=== PATIENT | female | born 1995 | race Caucasian/White ===

== ENCOUNTER 2017-06-01 22:15 | Emergency (ER) | END 2017-06-02 04:28 | disposition home or self-care (01) ==

== ENCOUNTER 2017-07-20 16:05 | Emergency (ER) | END 2017-07-20 20:48 | disposition home or self-care (01) ==

== ENCOUNTER 2018-08-25 15:27 | Observation (INO) | payer OTHER ==
[~2018-08-25] VITALS: Ht 170.2 cm; Wt 86.5 kg
[~2018-08-25 15:27] MED LIST: ACET500C5 PO; CLIN300C10 PO; ELEC100080 PO; METO10TA92 PO; PREN1TAB49 PO; PRO20 PO
[2018-08-25] MEDS ORDERED: SOD CHLORIDE 0.9% 1,000 ML IV STA (16:13)
--- NOTE | 2018-08-25 17:10 | ERD ---
ER Documentation Chief Complaint Chief Complaint [facility], [facility], vag bleeding uncontrolled HPI 23-year-old female Ab1 brought in by ambulance from [facility] after she had a suction at 12 weeks gestational age. She had uncontrolled vaginal bleeding so the device was placed to tamponade the bleeding and she was sent to the ER. It seems that the physician there called Dr. Austin, 1 of our terminal carman here, who has been expecting the patient. Patient is not complaining of any abdominal pain, dizziness, headache, nausea. She states she does has mild discomfort from the Singh and the other tube in her vagina. Denies any history of bleeding disorders. Not taking any NSAIDs or blood thinners. ROS All systems reviewed and are negative except as per history of present illness. Medications Home Meds Active Scripts Electrolyte,Oral (Pedialyte) 1,000 Ml Solution, 1000 ML PO Q6, #1000 ML Prov:THAI GARIBAY PA-C 07/20/17 Metoclopramide* (Reglan*) 10 Mg Tablet, 10 MG PO Q6 PRN for NAUSEA AND/OR VOMITING, #20 TAB Prov:THAI GARIBAY PA-C 07/20/17 Acetaminophen* (Tylophen*) 500 Mg Capsule, 1 CAP PO Q6H PRN for PAIN AND OR ELEVATED TEMP, #20 CAP Prov:TILA SALCIDO PA-C 06/02/17 Clindamycin Hcl* (Clindamycin Hcl*) 300 Mg Capsule, 300 MG PO TID for 10 Days, CAP Prov:TILA SALCIDO PA-C 06/02/17 Reported Medications Nifedipine* (Procardia*) 20 Mg Cap, 20 MG PO Q6 07/15/12 Vits W-Ca,Fe,Fa(<1MG) () 1 Tab Tablet, 1 TAB PO DAILY 06/22/12 [None] No Conflict Check 11/12/09 Allergies Allergies: Coded Allergies: Penicillins (Verified Allergy, Unknown, 07/20/17) Uncoded Allergies: ALMONDS (Allergy, Severe, 07/15/12) SWELLING PMhx/Soc Medical and Surgical Hx: pt denies Medical Hx, pt denies Surgical Hx History of Surgery: No Anesthesia Reaction: No Hx Neurological Disorder: No Hx Respiratory Disorders: No Hx Cardiac Disorders: No Hx Psychiatric Problems: No Hx Miscellaneous Medical Probl: No Hx Alcohol Use: No Hx Substance Use: No Hx Tobacco Use: No Smoking Status: Never smoker FmHx Family History: No diabetes Physical Exam Vitals Vital Signs Date Temp Pulse Resp B/P (MAP) Pulse Ox O2 O2 Flow FiO2 Time Delivery Rate 08/25/18 69 15 104/67 100 Room Air 18:15 (79) 08/25/18 64 14 87/67 (74) 100 Room Air 18:00 08/25/18 71 16 117/70 100 Room Air 17:00 (86) 08/25/18 78 18 100/62 100 Room Air 16:00 (75) 08/25/18 97.2 85 20 122/79 99 15:54 (93) Physical Exam Const: No acute distress Head: Atraumatic Eyes: Normal Conjunctiva ENT: Normal External Ears, Nose and Mouth. Neck: Full range of motion. No meningismus. Resp: Clear to auscultation bilaterally Cardio: Regular rate and rhythm, no murmurs. 2+ distal pulses Abd: Soft, non tender, non distended. uterine fundus palpable. no bogginess of uterus. no masses. Normal bowel sounds : Vaginal tube with 300 ml blood in bag, no active bleeding. Singh in place draining clear yellow urine Skin: No petechiae or rashes Back: No midline or flank tenderness Ext: No cyanosis, or edema Neur: Awake and alert Psych: Normal Mood and Affect Result Diagram: 08/25/18 1624 08/25/18 1725 Results 24 hrs Laboratory Tests Test 08/25/18 16:24 08/25/18 17:25 White Blood Count 9.7 10^3/ul Red Blood Count 4.96 10^6/ul Hemoglobin 14.5 g/dl Hematocrit 42.7 % Mean Corpuscular Volume 86.1 fl Mean Corpuscular Hemoglobin 29.2 pg Mean Corpuscular Hemoglobin Concent 34.0 g/dl Red Cell Distribution Width 13.5 % Platelet Count 133 10^3/UL Mean Platelet Volume 13.4 fl Immature Granulocytes % 0.300 % Neutrophils % 76.6 % Lymphocytes % 16.3 % Monocytes % 5.7 % Eosinophils % 0.8 % Basophils % 0.3 % Nucleated Red Blood Cells % 0.0 /100WBC Immature Granulocytes # 0.030 10^3/ul Neutrophils # 7.4 10^3/ul Lymphocytes # 1.6 10^3/ul Monocytes # 0.6 10^3/ul Eosinophils # 0.1 10^3/ul Basophils # 0.0 10^3/ul Nucleated Red Blood Cells # 0.0 10^3/ul Prothrombin Time 12.4 Sec Prothrombin Time Ratio 1.0 INR International Normalized Ratio 0.91 Activated Partial Thromboplast Time 27.0 Sec Fibrinogen 468.0 mg/dl D-Dimer 9527.16 ng/ml D-Dimer Comment Beta HCG, Quantitative 06190.0 mIU/ml Sodium Level 140 mmol/L Potassium Level 4.0 mmol/L Chloride Level 108 mmol/L Carbon Dioxide Level 22 mmol/L Anion Gap 10 Blood Urea Nitrogen 13 mg/dl Creatinine 0.56 mg/dl Est Glomerular Filtrat Rate mL/min > 60 mL/min Glucose Level 77 mg/dl Calcium Level 9.4 mg/dl Total Bilirubin 0.4 mg/dl Direct Bilirubin 0.00 mg/dl Indirect Bilirubin 0.4 mg/dl Aspartate Amino Transf (AST/SGOT) 27 IU/L Alanine Aminotransferase (ALT/SGPT) 11 IU/L Alkaline Phosphatase 72 IU/L Total Protein 8.1 g/dl Albumin 4.3 g/dl Globulin 3.80 g/dl Albumin/Globulin Ratio 1.13 Current Medications Medications Dose Sig/Javier Start Time Status Last (Trade) Ordered Route PRN Stop Time Admin Dose Reason Admin Sodium 1,000 ml @ Q1H STAT 08/25/18 DC 08/25/18 Chloride 1,000 mls/hr IV 16:13 08/25/18 16:23 17:12 Ondansetron 4 mg BRIDGE ORDER 08/25/18 HCl (Zofran PRN IV 18:00 08/26/18 Inj) NAUSEA/VOMITI 17:59 NG 650 mg ER BRIDGE 08/25/18 Acetaminophen PRN PO 18:00 08/26/18 (Tylenol .MILD PAIN 17:59 Tab) 1-3 OR TEMP Procedures/MDM EMERGENT LABS AND DIAGNOSTIC STUDIES: Lab Results above were reviewed and interpreted by me. CBC: Mild thrombocytopenia, unclear etiology. No anemia or evidence of infection CMP: No evidence of clinically significant electrolyte abnormality, acidosis, renal failure, hypoglycemia, liver disease, or biliary obstruction Coags within normal limits Fibrinogen and d-dimer elevated, expected Radiology Results as interpreted by Radiology below were reviewed by Rebekah Peralta MD: Pelvic ultrasound: IMPRESSION: Previously seen gestational sac is no longer visualized. The findings likely represent an in progress. Heterogeneous and thickened endometrium with no increased vascularity. Singh catheter noted within the endometrium. Follow-up ultrasound and HCG levels is recommended. Initial Nursing notes reviewed. Previous Medical Records requested via the Electronic Health Record. EMERGENCY DEPARTMENT COURSE / MEDICAL DECISION MAKING: Patient is presenting with uterine hemorrhage after an , currently hemodynamically stable. There is no signs of active bleeding into the bag of the Batri balloon. I spoke with the SHEET METAL CONTRACTOR on-call, who plans to admit the pa tient for observation. At this time there is no evidence of life-threatening anemia or continuous bleeding. Accepting Care Team: Current data and ongoing care discussed. Time: Time of admission Primary Provider: Dr. Austin with OBGYN Outstanding Data: none Departure Diagnosis: Primary Impression: Vaginal delivery with potential for hemorrhage Additional Impression: Status post elective Condition: Serious KENNETH PERALTA MD Aug 25, 2018 17:10
[2018-08-25] MEDS ORDERED: ONDANSETRON 4 MG INJ IV PRN (18:00)
[2018-08-25] MEDS ORDERED: ACETAMINOPHEN 325 MG TAB PO PRN (18:00)
[2018-08-25 20:00] VITALS: BP 105/56; PULSE 60; RESP 17
[2018-08-25 20:10] VITALS: Ht 170.2 cm; Wt 86.5 kg
[2018-08-25] MEDS: DEXTROSE 5%-LR 1,000 ML IV SCH (21:18)
[2018-08-25] MEDS: MISOPROSTOL 200 MCG TAB PO SCH (23:56)
[2018-08-26 00:50] VITALS: BP 115/64; PULSE 68; RESP 20
[2018-08-26 02:31] VITALS: BP 118/62; PULSE 63; RESP 17
--- NOTE | 2018-08-26 04:04 | CONS ---
Assessment/Plan Assessment/Plan Problems: (1) Status post elective Status: Acute Assessment/Plan (Daily) Status post therapeutic at 12 weeks and 5 days by D&C Post abortal hemorrhage. Status post Backery balloon placement after exhaustion of medical treatment Patient currently hemodynamically stable. There is no active bleeding currently. Vaginal pack removed. We will continue to monitor closely. Plan to deflate the back to balloon gradually and to watch for any further bleeding. Start Cytotec 200 mcg every 4 hours p.o. Azithromycin 1 gram x 1 Strict pad counts. Discussed plan of care with RN. If bleeding controlled and patient hemodynamically stable and no active bleeding after removing of balloon may discharge home with contraception. Contraceptive option discussed. Patient will make a decision and will let me know Consultation Date/Type/Reason Admit Date/Time Aug 25, 2018 at 17:37 Date of Consultation: Aug 26, 2018 Type of Consult VP PATIENT Reason for Consultation Continuous vaginal bleeding after termination of at 12 weeks at [facility] Date/Time of Note DATE: 08/26/18 TIME: 04:03 Hx of Present Illness 23-year-old with at 12 weeks and 5 days, that is post termination by D&C at [facility] and [place]. Patient was transferred from [facility] after noted to have continued vaginal bleeding. Apparently due to continuous bleeding, a Backery balloon was placed inside the uterus for tamponade, as well as a vaginal pack. Patient was then transferred to [facility]. Patient also has a Singh catheter for measuring urine output. Patient was admitted for observation and evaluation of heavy vaginal bleeding post therapeutic . Patient currently denies any shortness of breath, chest pain, dizziness, lightheadedness. Comfortable in bed. Reports her bleeding significantly decreased since admission. She has a good appetite. She is breast-feeding. She conceived while she was breast-feeding. She is a status post on February 2018. Was not using any contraception. Reports her last menstrual period June 05, 2017 when she conceived with the last . Subjective hx not possible: other Constitutional: no complaints, improved Eyes: no complaints, pain ENT: no complaints, bleeding Respiratory: no complaints, pain Cardiovascular: no complaints Gastrointestinal: no complaints Genitourinary: bleeding; No no complaints, No dysuria, No discharge, No flank pain, No hematuria, No other Musculoskeletal: no complaints, back pain Skin: bruising, erythema Neurologic: no complaints Endocrine: no complaints Lymphatic: no complaints Psychological: no complaints Past Medical History Medical History: no pertinent history Home Meds Active Scripts Electrolyte,Oral (Pedialyte) 1,000 Ml Solution, 1000 ML PO Q6, #1000 ML Prov:THAI GARIBAY PA-C 07/20/17 Metoclopramide* (Reglan*) 10 Mg Tablet, 10 MG PO Q6 PRN for NAUSEA AND/OR VOMITING, #20 TAB Prov:THAI GARIBAY PA-C 07/20/17 Acetaminophen* (Tylophen*) 500 Mg Capsule, 1 CAP PO Q6H PRN for PAIN AND OR ELEVATED TEMP, #20 CAP Prov:TILA SALCIDO PA-C 06/02/17 Clindamycin Hcl* (Clindamycin Hcl*) 300 Mg Capsule, 300 MG PO TID for 10 Days, CAP Prov:TILA SALCIDO PA-C 06/02/17 Reported Medications Nifedipine* (Procardia*) 20 Mg Cap, 20 MG PO Q6 07/15/12 Vits W-Ca,Fe,Fa(<1MG) () 1 Tab Tablet, 1 TAB PO DAILY 06/22/12 [None] No Conflict Check 11/12/09 Medications Current Medications Dextrose/Lactated Ringer's 1,000 ml @ 125 mls/hr Q8H IV Last administered on 08/25/18at 21:18; Admin Dose 125 MLS/HR; Start 08/25/18 at 21:00 Misoprostol (Cytotec) 200 mcg Q6 PO Last administered on 08/25/18at 23:56; Admin Dose 200 MCG; Start 08/26/18 at 00:00 Allergies: Coded Allergies: Penicillins (Verified Allergy, Unknown, 07/20/17) Uncoded Allergies: ALMONDS (Allergy, Severe, 07/15/12) SWELLING Past Surgical History Past Surgical Hx: no surgical history Family History Significant Family History: no pertinent family hx Social History Alcohol Use: none Smoking Status: Former smoker Drug Use: none Exam/Review of Systems Exam Vitals Vital Signs Date Temp Pulse Resp B/P (MAP) Pulse Ox O2 O2 Flow FiO2 Time Delivery Rate 08/26/18 98.6 63 17 118/62 95 Room Air 02:31 (80) Intake and Output 7/3/19 7/3/19 7/4/19 1515:00 23:00 07:00 OutputOutput Total 200 ml BalanceBalance -200 ml Constitutional: alert, oriented, well developed Psych: no complaints, nl mood/affect Head: normocephalic, atraumatic Eyes: nl conjunctiva, EOMI, nl lids ENMT: nl external ears & nose, nl lips & teeth, nl nasal mucosa & septum Neck: supple Respiratory: clear to auscultation, normal air movement Cardiovascular: regular rate and rhythm, nl pulses Gastrointestinal: soft, non-tender Genitourinary - Female: other (External genitalia within normal limits. A Singh urinary catheter in place draining clear yellow urine as well as an intrauterine catheter with attached bag. There is about 200 cc of blood in the uterine catheter noted. There is evidence of a vaginal pack noted that soaked with blood. After removing of vaginal pack speculum exam attempted. There is a scant amount of blood in the vault. Cervix and vagina normal. No evidence of laceration noted. A uterine catheter noted exiting from the cervix. Speculum removed. Bimanual examination: Uterus about 10 to 11 cm and nontender. No fullness or tenderness in adnexa. Abdomen: Soft, no tenderness no rebound tenderness, no guarding no rigidity soft.) Extremities: normal pulses Neurological: LICENSING SERVICES CLERK II-XII intact, nl mental status, nl speech Skin: nl turgor, rash or lesions Results Result Diagram: 08/25/18 1624 08/25/18 1725 Results 24hrs Laboratory Tests Test 08/25/18 16:24 08/25/18 17:25 White Blood Count 9.7 # Red Blood Count 4.96 Hemoglobin 14.5 Hematocrit 42.7 Mean Corpuscular Volume 86.1 Mean Corpuscular Hemoglobin 29.2 Mean Corpuscular Hemoglobin Concent 34.0 Red Cell Distribution Width 13.5 Platelet Count 133 #L Mean Platelet Volume 13.4 H Immature Granulocytes % 0.300 Neutrophils % 76.6 Lymphocytes % 16.3 Monocytes % 5.7 Eosinophils % 0.8 Basophils % 0.3 Nucleated Red Blood Cells % 0.0 Immature Granulocytes # 0.030 Neutrophils # 7.4 Lymphocytes # 1.6 Monocytes # 0.6 Eosinophils # 0.1 Basophils # 0.0 Nucleated Red Blood Cells # 0.0 Prothrombin Time 12.4 Prothrombin Time Ratio 1.0 INR International Normalized Ratio 0.91 Activated Partial Thromboplast Time 27.0 Fibrinogen 468.0 H D-Dimer 9527.16 H D-Dimer Comment Beta HCG, Quantitative 94401.0 Sodium Level 140 Potassium Level 4.0 Chloride Level 108 Carbon Dioxide Level 22 Anion Gap 10 Blood Urea Nitrogen 13 Creatinine 0.56 Est Glomerular Filtrat Rate mL/min > 60 Glucose Level 77 Calcium Level 9.4 Total Bilirubin 0.4 Direct Bilirubin 0.00 Indirect Bilirubin 0.4 Aspartate Amino Transf (AST/SGOT) 27 Alanine Aminotransferase (ALT/SGPT) 11 L Alkaline Phosphatase 72 Total Protein 8.1 Albumin 4.3 Globulin 3.80 H Albumin/Globulin Ratio 1.13 Imaging Imaging PROCEDURE: US Pelvis. CLINICAL INDICATION: vaginal bleeding TECHNIQUE: Multiple sonographic images of the pelvis were obtained utilizing a transabdominal technique. The images were reviewed on a PACS workstation. COMPARISON: None. FINDINGS: The uterus is slightly enlarged in size and demonstrates a normal appearance of the myometrium. The uterus measures 11.7 x 7.3 x 9.3 cm in size. The endometrial stripe is heterogeneous in appearance and has the thickness of 4 8 mm. There is no increased vascularity. There is a Singh catheter noted within the endometrium. Previously seen gestational sac is no longer visualized. The ovaries are not visualized. No free fluid is present within the pelvis.. RPTAT: AA IMPRESSION: Previously seen gestational sac is no longer visualized. The findings likely represent an in progress. Heterogeneous and thickened endometrium with no increased vascularity. Singh catheter noted within the endometrium. Follow-up ultrasound and HCG levels is recommended Medications Medication Current Medications Dextrose/Lactated Ringer's 1,000 ml @ 125 mls/hr Q8H IV Last administered on 08/25/18at 21:18; Admin Dose 125 MLS/HR; Start 08/25/18 at 21:00 Misoprostol (Cytotec) 200 mcg Q6 PO Last administered on 08/25/18at 23:56; Admin Dose 200 MCG; Start 08/26/18 at 00:00 SIMON CHAVEZ MD Aug 26, 2018 04:04
[2018-08-26] MEDS ORDERED: AZITHROMYCIN 500 MG TAB PO ONE (05:30)
[2018-08-26] MEDS: DEXTROSE 5%-LR 1,000 ML IV SCH ×2 (05:36→13:00)
[2018-08-26] MEDS: MISOPROSTOL 200 MCG TAB PO SCH ×3 (05:42→19:13)
[2018-08-26 07:37] VITALS: BP 109/56; PULSE 80; RESP 18
[2018-08-26 14:31] VITALS: BP 110/70; PULSE 79; RESP 18
--- NOTE | 2018-08-26 16:46 | QN ---
Documentation Comment Patient denies any complaint. Comfortable in bed. Reports minimal vaginal bleeding. Denies any abdominal pain. Denies any fever or chills. Denies any cramps. Physical examination: General appears alert and oriented x4 does not appear to be in any acute distress Abdomen: Soft, no tenderness, no rebound tenderness, no guarding, no rigidity Extremities: No calf tenderness, no click no edema Singh balloon, intrauterine with a total of 200 cc since admission dark blood. Balloon deflated. After aspiration 20 cc of saline the balloon was removed. Urethral catheter also deflated and removed. Adequate clear yellow urine noted. Assessment Status post therapeutic , D&C complicated by postop portal hemorrhage and [facility] Bleeding stopped after placement of packed balloon. Patient had a vaginal pack that removed last night Intrauterine Singh balloon and urethral balloon removed. Patient currently hemodynamically stable. No bleeding since last night. Had been on Cytotec 200 mg every 6 hours. We will continue watch closely. Anticipate discharge this afternoon if she is able to ambulate without symptoms and bleeding continued to be low-grade/minimal follow-up with primary [facility]MPER office within a week after discharge from the hospital Discussed regarding control To be started immediately after discharge from the hospital Plan of care discussed with SIMON MEJIA MD Aug 26, 2018 16:46
--- NOTE | 2018-08-26 16:47 | PD.PPDC ---
ORDNANCE TECHNICIAN Discharge Instruction Provider Information Physician Information Simon Chavez MD Condition [id number] Patient Condition: [id number] Good Diet [id number] Diet: [id number] Resume Regular Diet Activity/Restrictions [id number] Restrictions: Mvoof0s No Exercising No Lifting Nothing in the Vagina No [place] No Tampons, douche Follow-up Follow-up with Physician: 1, Week/Weeks Provider Information: Follow up in one week with primary OB or sooner PRN Return to clinic for [id number] CURTAIN STITCHER Instructions: [id number] Fever greater than 101 Chills Worsening abdominal pain Excessive Vaginal Bleeding More than 2 pads per hour Unable to tolerate diet Comment: Discussed to start OCP after DC home today Rx provided SIMON CHAVEZ MD Aug 26, 2018 16:47
--- NOTE | 2018-08-26 16:50 | DS ---
Date/Time of Note Date/Time of Note DATE: 08/26/18 TIME: 16:47 Discharge Summary Admission/Discharge Info Admit Date/Time Aug 25, 2018 at 17:37 Discharge Date/Time August 26, 2018 Discharge Diagnosis Post abortal hemorrhage Patient Condition: Good Consults Gynecology Procedures Observation Hx of Present Illness 23-year-old G3, P2 with recent episode of at 12 weeks and 5 days underwent therapeutic with D&C at [facility] yesterday she was noted to have continued hemorrhage after D&C. Bactrim balloon was placed inside the uterus as well as vaginal pack and patient was transferred then to [facility]. Patient was kept overnight for observation. Cytotec started p.o. every 6 hours with continuous monitoring urine output and vaginal bleeding. She remained stable during observation. Intrauterine catheter as well as urethral catheter was removed less than 24 hours and patient was noted to be stable with minimal vaginal bleeding. She denied any pain or symptoms. She could ambulate without any problem. Her vitals was stable and hemoglobin was normal. She was given a dose of azithromycin as well for prophylaxis treatment due to D&C. She was afebrile. Patient was discharged home in stable condition with a prescription of Loestrin and follow-up within a week with her primary OB office. She was advised to start control the same day after discharge from the hospital. Hospital Course None complicated Home Meds Active Scripts Electrolyte,Oral (Pedialyte) 1,000 Ml Solution, 1000 ML PO Q6, #1000 ML Prov:THAI GARIBAY PA-C 07/20/17 Metoclopramide* (Reglan*) 10 Mg Tablet, 10 MG PO Q6 PRN for NAUSEA AND/OR VOMITING, #20 TAB Prov:THAI GARIBAY PA-C 07/20/17 Acetaminophen* (Tylophen*) 500 Mg Capsule, 1 CAP PO Q6H PRN for PAIN AND OR ELEVATED TEMP, #20 CAP Prov:TILA SALCIDO PA-C 06/02/17 Clindamycin Hcl* (Clindamycin Hcl*) 300 Mg Capsule, 300 MG PO TID for 10 Days, CAP Prov:TILA SALCIDO PA-C 06/02/17 Reported Medications Nifedipine* (Procardia*) 20 Mg Cap, 20 MG PO Q6 07/15/12 Vits W-Ca,Fe,Fa(<1MG) () 1 Tab Tablet, 1 TAB PO DAILY 06/22/12 [None] No Conflict Check 11/12/09 Follow-up Plan 1 week with primary OB office or sooner as needed Primary Care Provider Not On Staff Doctor Time spent on discharge: > 30 minutes Pending Labs Laboratory Tests Test 08/25/18 17:25 Sodium Level 140 mmol/L (135-144) Potassium Level 4.0 mmol/L (3.5-5.1) Chloride Level 108 mmol/L (97-110) Carbon Dioxide Level 22 mmol/L (21-31) Anion Gap 10 (5-13) Blood Urea Nitrogen 13 mg/dl (7-20) Creatinine 0.56 mg/dl (0.44-1.00) Est Glomerular Filtrat Rate mL/min > 60 mL/min (>60) Glucose Level 77 mg/dl (70-220) Calcium Level 9.4 mg/dl (8.4-10.2) Total Bilirubin 0.4 mg/dl (0.2-1.3) Direct Bilirubin 0.00 mg/dl (0.00-0.20) Indirect Bilirubin 0.4 mg/dl (0-1.1) Aspartate Amino Transf (AST/SGOT) 27 IU/L (15-46) Alanine Aminotransferase (ALT/SGPT) 11 IU/L (13-69) Alkaline Phosphatase 72 IU/L (42-121) Total Protein 8.1 g/dl (6.1-8.1) Albumin 4.3 g/dl (3.3-4.9) Globulin 3.80 g/dl (1.3-3.2) Albumin/Globulin Ratio 1.13 SIMON CHAVEZ MD Aug 26, 2018 16:50
== END 2018-08-26 21:00 | disposition home or self-care (01) ==
LOC: E/R 15:27 → PP2 17:37 → EDBEDREQ 18:45 → MS1 08-26 00:36
PROVIDERS: ADMIT Obstetrics & Gynecology; ATTEND Obstetrics & Gynecology
DX: O03.6 Delayed or excessive hemorrhage following complete or unspecified spontaneous abortion (principal)
CPT/HCPCS: 36415; 76801; 80053; 84702; 85025; 85378; 85384; 85610; 85730; 86900; 86901; J7030; J7121; Z7500; Z7502; Z7610; G0378